=== PATIENT | female | born 1955 | race Two or more races ===

== ENCOUNTER 2024-06-28 08:47 | Emergency (ER) | payer OTHER ==
[~2024-06-28] VITALS: Ht 157.5 cm; Wt 90.7 kg
[2024-06-28] MEDS ORDERED: LEVOTHYROXINE25 MCG PO (09:16)
[2024-06-28 09:44] LABS: HEMATOCRIT 42.8 % (36.0-45.00); HEMOGLOBIN 14.3 g/dL (12.0-15.00); MEAN CELL VOLUME 90.5 fL (80.00-100.00); MEAN CORPUSCULAR HEMOGLOBIN 30.3 pg (27.00-32.0); MEAN CORPUSCULAR HGB CONC 33.5 g/dl (32.0-36.0); PLATELET COUNT 235 K/uL (150-450); RED BLOOD COUNT 4.73 M/uL (4.00-6.00); RED CELL DISTRIBUTION WIDTH 14.9 % (11.5-14.5)
[2024-06-28 10:07] LABS: ALBUMIN 3.8 gm/dL (3.4-5.0); BILIRUBIN TOTAL 0.58 mg/dL (0.3-1.2); CALCIUM 9.2 mg/dL (8.5-10.1); CREATININE SERUM 0.63 mg/dL (0.55-1.02); GFR 94.25; GLOBULINA 3.8 G/DL (2.4-3.5); POTASSIUM 4.23 mEq/L (3.5-5.1); TOTAL PROTEIN 7.6 gm/dL (6.4-8.2)
[2024-06-28] MEDS ORDERED: ACETAMINOPHEN 500 MG GEL..CAP PO STA (10:07)
[2024-06-28] MEDS ORDERED: ENALAPRILAT DIHYDRATE 2.5 MG/2 ML VIAL IV ONE (10:45)
[2024-06-28 11:36] LABS: PARTIAL THROMBOPLASTIN TIME 28.4 SECONDS (22.0-34.0); PROTHROMBIN TIME 10.9 SECONDS (9.0-11.5)
[2024-06-28] MEDS ORDERED: NITROGLYCERIN IN 5 % DEXTROSE 50 MG/250 ML BOTTLE IV SCH (11:45)
[2024-06-28] MEDS ORDERED: LORazepam 2 MG/ML VIAL IM ONE (12:15)
[2024-06-28] MEDS ORDERED: hydrALAZINE HCL 20 MG VIAL IV ONE (12:30)
[2024-06-28] MEDS ORDERED: AMLODIPINE BESYLATE 5 MG TABLET PO SCH (15:09)
[2024-06-28] MEDS ORDERED: IRBESARTAN-HCT1 EACH PO (17:28)
[2024-06-28] MEDS ORDERED: FUROsemide 40 MG/4 ML VIAL IV ONE (18:15)
== END 2024-06-28 21:40 | disposition home or self-care (01) ==
LOC: ER 08:49
PROVIDERS: General Practice
DX: I16.9 Hypertensive crisis, unspecified (principal); I10 Essential (primary) hypertension; B34.9 Viral infection, unspecified; Z88.0 Allergy status to penicillin; F41.8 Other specified anxiety disorders; E03.8 Other specified hypothyroidism; J45.909 Unspecified asthma, uncomplicated; Z20.822 Contact with and (suspected) exposure to COVID-19
CPT/HCPCS: 36415; 71046; 96365; 99283; J1940; J3490